=== PATIENT | female | born 1970 | race Caucasian/White ===

== ENCOUNTER → 2024-12-16 13:59 | Outpatient (REF) | payer BC, SELFPAY | LOC: PAVMRI 13:59 | PROVIDERS: ATTENDING PHYSICIAN Otolaryngology; FAMILY PHYSICIAN Physician Assistant Medical | DX: H90.A22 Sensorineural hearing loss, unilateral, left ear, with restricted hearing on the contralateral side (principal) | CPT/HCPCS: 70553; A9575 ==